=== PATIENT | female | born 1965 | race Caucasian/White ===

== ENCOUNTER 2018-01-09 15:14 | Emergency (ER) | payer BC, OTHER ==
--- NOTE | 2018-01-09 16:08 | UC ---
Lower Extremity/Ankle HPI - HPI Summary HPI Summary: at 1:45 pm, pt rolled her R ankle during recess while at work. she stepped on a stone. - History of Current Complaint Hx Obtained From: Patient ?: No Onset/Duration: Sudden Onset Aggravating Factor(s): Other - twisting the ankle Alleviating Factor(s): Rest Able to Bear Weight: Yes <Chely Belcher - Last Filed: 01/09/18 16:01> <Shelby Angeles - Last Filed: 01/09/18 18:18> - History of Current Complaint Stated Complaint: RIGHT ANKLE INJURY (WC) Time Seen by Provider: 01/09/18 15:54 - Allergies/Home Medications Allergies/Adverse Reactions: Allergies Allergy/AdvReac Type Severity Reaction Status Date / Time codeine Allergy Rash Verified 01/09/18 15:53 Home Medications: Home Medications Multivit-Min/Folic Acid/Vit K1 [Multi For Her 50 Plus Softgel] 1 each DAILY 11/27 [History Confirmed 01/09/18] PMH/Surg Hx/FS Hx/Imm Hx Previously Healthy: Yes - Surgical History Surgical History: None - Social History Occupation: Employed Full-time Alcohol Use: Occasionally Substance Use Type: None Smoking Status (MU): Never Smoked Tobacco - Immunization History Vaccination Up to Date: Yes <Chely Belcher - Last Filed: 01/09/18 16:01> Review of Systems Constitutional: Negative Skin: Negative Eyes: Negative ENT: Negative Respiratory: Negative Cardiovascular: Negative Gastrointestinal: Negative Genitourinary: Negative Motor: Negative Neurovascular: Negative Musculoskeletal: Edema - R ankle Neurological: Negative Psychological: Negative Is Patient Immunocompromised?: No All Other Systems Reviewed And Are Negative: Yes <Chely Belcher - Last Filed: 01/09/18 16:01> Physical Exam Triage Information Reviewed: Yes Vital Signs Reviewed: Yes Eye Exam: Normal ENT Exam: Normal Neck: Positive: Supple, Nontender Respiratory: Positive: Lungs clear, Normal breath sounds Cardiovascular: Positive: RRR, No Murmur Abdomen Description: Positive: Nontender, No Organomegaly, Soft Bowel Sounds: Positive: Present Musculoskeletal: Positive: Other: - RLE: hip, knee, achilles, foot atraumatic. R lateral ankle with mild swelling and tenderness. foot has full s/v/m function. Neurological: Positive: Alert Psychological: Positive: Age Appropriate Behavior Skin Exam: Normal <Chely Belcher - Last Filed: 01/09/18 16:01> Vital Signs: Initial Vital Signs Temp 100.7 F 01/09/18 16:00 Pulse 83 01/09/18 16:00 Resp 18 01/09/18 16:00 BP 128/75 01/09/18 16:00 Pulse Ox 98 01/09/18 16:00 <Shelby Angeles - Last Filed: 01/09/18 18:18> Lower Extremity Course/Dx - Course Course Of Treatment: pt declined wheelchair to xray and pain medication at time of exam. avulsion fx distal fibula. splint with ortho f/u. temp 100.7 and not considered a fever. exam shows no concern for septic jpoint/skin infection. - Differential Dx/Diagnosis Provider Diagnoses: Fracture R ankle (tip of fibula) <Chely Belcher - Last Filed: 01/09/18 16:01> Discharge - Sign-Out/Discharge Documenting (check all that apply): Discharge - Billing Disposition and Condition Condition: STABLE Disposition: HOME <Chely Belcher - Last Filed: 01/09/18 16:01> - Billing Disposition and Condition Condition: STABLE Disposition: HOME <Shelby Angeles - Last Filed: 01/09/18 18:18> - Discharge Plan Condition: Stable Disposition: HOME Patient Education Materials: Ankle Fracture (ED) Referrals: Ely Funes PA [Primary Care Provider] - If Needed Yaron Schreiber MD [Medical Doctor] - As Soon As Possible Attestation Statement User Type: Provider - I was available for consult. This patient was seen by the WILLIAM. The patient was not presented to, seen by, or examined by me. -Rufina <Shelby Angeles - Last Filed: 01/09/18 18:18>
[2018-01-09 16:09] VITALS: BP 128/75
--- NOTE | 2018-01-09 16:32 | RAD ---
INDICATION: Right ankle pain COMPARISON: None TECHNIQUE: AP, lateral, and oblique views were obtained. FINDINGS: There is a nondisplaced avulsion fracture from the lateral malleolus. No other fractures are evident. The ankle mortise is intact. There is lateral soft tissue swelling.. IMPRESSION: SMALL AVULSION FRACTURE FROM THE LATERAL MALLEOLUS.
== END 2018-01-09 16:39 | disposition home or self-care (01) ==
LOC: UCCORT 15:14
DX: S82.64XA Nondisplaced fracture of lateral malleolus of right fibula, initial encounter for closed fracture (principal); X50.1XXA Overexertion from prolonged static or awkward postures, initial encounter; Y92.9 Unspecified place or not applicable; Z88.5 Allergy status to narcotic agent
CPT/HCPCS: 99203; G0463